=== PATIENT | female | born 1950 | race Caucasian/White ===

== ENCOUNTER 2019-04-04 19:38 | Emergency (ER) | payer MEDICARE ==
--- NOTE | 2019-04-04 21:58 | ED ---
Complex/Multi-Sys Presentation - HPI Summary HPI Summary: Patient complains of lump in right inguinal groin area 1.5 hours. Patient states she was moving stuff all day, denies pain, known trauma, fever, cough, sore throat, CP, SOB, N/V/D, change in urine, change in BM, vaginal symptoms. - History Of Current Complaint Chief Complaint: EDGeneral Time Seen by Provider: 04/04/19 21:00 Hx Obtained From: Patient Onset/Duration: Sudden Onset Timing: Intermittent, Lasting: Severity Currently: None - Allergies/Home Medications Allergies/Adverse Reactions: Allergies Allergy/AdvReac Type Severity Reaction Status Date / Time MS Penicillins [Penicillins] Allergy Severe Anaphylatic Verified 06/15/15 09:19 Shock MS Sertraline [From Zoloft] Allergy Severe HYPERTENSION,COLD Verified 06/15/15 09:19 CLAMMY, INCREASED ANXIETY, MS Trazodone [Trazodone] Allergy Severe DIFFICULTY Verified 06/15/15 09:19 BREATHING, THROAT GETS TIGHT PMH/Surg Hx/FS Hx/Imm Hx Endocrine/Hematology History: Denies: Hx Diabetes, Hx Thyroid Disease Cardiovascular History: Reports: Hx Hypertension Respiratory History: Denies: Hx Asthma, Hx Chronic Obstructive Pulmonary Disease (COPD) GI History: Reports: Hx Hiatal Hernia Denies: Hx Ulcer Musculoskeletal History: Reports: Hx Arthritis - SHE SUSPECT, BILATERAL FEET, BILATERAL THUMBS Sensory History: Reports: Hx Contacts or Glasses - GLASSES Denies: Hx Hearing Aid Opthamlomology History: Reports: Hx Contacts or Glasses - GLASSES Neurological History: Reports: Hx Headaches - BAROMETRIC PRESSURE HEADACHES WITH SOME N/V, Hx Migraine - DURING JOLYNN AND MENOPAUSE Psychiatric History: Reports: Hx Anxiety - HX OF, Hx Depression - Surgical History Surgery Procedure, Year, and Place: Tonsillectomy, C section, Miscarriage, Hx Anesthesia Reactions: No - Immunization History Date of Tetanus Vaccine: Unk Date of Influenza Vaccine: None Infectious Disease History: No Infectious Disease History: Denies: Hx Hepatitis, Hx Human Immunodeficiency Virus (HIV), Traveled Outside the [place] in Last 30 Days - Family History Known Family History: Positive: Non-Contributory - Social History Alcohol Use: Weekly Substance Use Type: Reports: Marijuana Substance Use Comment - Amount & Last Used: OCCASIONAL Smoking Status (MU): Never Smoked Tobacco Review of Systems Constitutional: Negative Eyes: Negative ENT: Negative Cardiovascular: Negative Respiratory: Negative Gastrointestinal: Negative Genitourinary: Negative Musculoskeletal: Negative Skin: Negative Neurological: Negative Psychological: Normal All Other Systems Reviewed And Are Negative: Yes Physical Exam - Summary Physical Exam Summary: No abdominal mass noted in right or left inguinal area. Abdomen soft nontender. Triage Information Reviewed: Yes Vital Signs On Initial Exam: Initial Vitals Temp Pulse Resp BP Pulse Ox 98.5 F 103 20 199/130 98 04/04/19 19:41 04/04/19 19:41 04/04/19 19:41 04/04/19 19:41 04/04/19 19:41 Vital Signs Reviewed: Yes Appearance: Positive: Well-Appearing Skin: Positive: Warm Head/Face: Positive: Normal Head/Face Inspection Eyes: Positive: Normal Neck: Positive: Supple Respiratory/Lung Sounds: Positive: Clear to Auscultation Cardiovascular: Positive: Normal Abdomen Description: Positive: Nontender Musculoskeletal: Positive: Normal Neurological: Positive: Normal Psychiatric: Positive: Normal AVPU Assessment: Alert - Guille Coma Scale Best Eye Response: 4 - Spontaneous Best Motor Response: 6 - Obeys Commands Best Verbal Response: 5 - Oriented Coma Scale Total: 15 Diagnostics - Vital Signs Vital Signs Temp Pulse Resp BP Pulse Ox 04/04/19 20:52 92 196/126 100 04/04/19 19:41 98.5 F 103 20 199/130 98 - Laboratory Lab Statement: Any lab studies that have been ordered have been reviewed, and results considered in the medical decision making process. Complex Multi-Symp Course/Dx Course Of Treatment: Patient complains of lump in right inguinal groin area 1.5 hours. Patient states she was moving stuff all day, denies pain, known trauma, fever, cough, sore throat, CP, SOB, N/V/D, change in urine, change in BM , vaginal symptoms. Vital signs within normal limits. No hernia noted at this time here in ED. Patient is in no pain. Patient concerned for hernia. No hernia noted at this time. Follow-up with surgery. - Diagnoses Provider Diagnoses: Groin lump Discharge - Sign-Out/Discharge Documenting (check all that apply): Patient Departure Patient Received Moderate/Deep Sedation with Procedure: No - Discharge Plan Condition: Stable Disposition: HOME Patient Education Materials: Inguinal Hernia (ED) Referrals: Graciela Ford MD [Primary Care Provider] - Piper Downing MD [Medical Doctor] - Additional Instructions: Follow-up with surgery Dr. Downing for further evaluation of possible hernia. Return to the ED for any new or worsening symptoms including pain, lump that cannot be reduced - Billing Disposition and Condition Condition: STABLE Disposition: Home
[2019-04-04 22:07] VITALS: BP 151/93
== END 2019-04-04 22:06 | disposition home or self-care (01) ==
LOC: ED 19:38
DX: R19.09 Other intra-abdominal and pelvic swelling, mass and lump (principal); Z88.0 Allergy status to penicillin
CPT/HCPCS: 99282

== ENCOUNTER 2024-07-10 15:48 | Inpatient (IN) ==
[2024-07-10 22:38] LABS: ABS Lymphocytes 0.9 10^3/uL (1.0-4.8); ABS Monocytes 1.1 10^3/uL (0.0-0.9); ABS Neutrophils 6.3 10^3/uL (1.5-7.6); ABS Nucleated RBC 0.01 10^3/ul; Eosinophil % 0.2 %; Hematocrit 37.2 % (35-45); Hemoglobin 12.2 g/dL (11.5-14.3); Lymphocyte % 10.8 %; Mean Corpuscular Hemoglobin 26.8 pg (27-33); Mean Corpuscular Hgb Conc 32.9 g/dL (31-36); Mean Corpuscular Volume 81.3 fL (80-97); Mean Platelet Volume 7.8 fL (7.5-11.2); Nucleated Red Blood Cells % 0.1 %/100WBC (0.0-0.8); Platelet Count 357 10^3/uL (150-450); Red Blood Count 4.57 10^6/uL (3.63-4.92); Red Cell Distribution Width 21.9 % (12-17); White Blood Count 8.4 10^3/uL (3.8-11.8)
[2024-07-10 23:06] LABS: Albumin 4.1 g/dL (3.2-5.2); Albumin/Globulin Ratio 1.8 (1-3); C Reactive Protein 124.71 mg/L (<8.01); Calcium 9.6 mg/dL (8.6-10.3); Creatinine, Serum 0.47 mg/dL (0.51-0.95); Globulin 2.3 g/dL (2-4); Potassium 3.8 mmol/L (3.5-5.0); Total Bilirubin 0.8 mg/dL (0.2-1.0); Total Protein 6.4 g/dL (6.4-8.9); eGFR CKD-EPI 99.2 (>60)
[2024-07-10] MEDS: NS 0.9% 1000 ml BAG 1,000 ML IV ONE (23:58)
[2024-07-11 00:02] LABS: Erythrocyte Sed Rate 23 mm/Hr (0-29)
[2024-07-11] MEDS: Morphine 2 MG/ML SYRINGE IV ONE ×2 (01:43→04:59)
[2024-07-11] MEDS: Morphine 4 MG/ML VIAL (1 ml) IV ONE ×2 (10:23→13:37)
[2024-07-11 15:26] LABS: Body Fluid Total Nucleated 3605 /mcL
[2024-07-11 15:38] LABS: Body Fluid Appearance Cloudy; Body Fluid Color Yellow; Body Fluid Source Synovial Fluid
[2024-07-11] MEDS: Gadoteridol (CONTRAST) 279.3 MG/ML 10 ML IV ONE (15:53)
[2024-07-11 16:48] LABS: Body Fluid Mono 24 %; Body Fluid Total Cells Counted 200
[2024-07-11] MEDS ORDERED: Vancomycin 1,000 MG VIAL IVPB SCH (18:00)
[2024-07-11] MEDS ORDERED: Magnesium Hydroxide LIQ 30 ML UDC PO PRN (20:02)
[2024-07-11] MEDS ORDERED: Senna TAB 8.6 mg TAB PO PRN (20:02)
[2024-07-11] MEDS ORDERED: Polyethylene Glycol 3350 17 GM PACKET PO PRN (20:02)
[2024-07-11] MEDS ORDERED: Albuterol HFA INHALER 8 gm MDI INH PRN (20:03)
[2024-07-11] MEDS ORDERED: Lidocaine 1% VIAL 10 MG/ML 30 ML VIAL ONE (20:04)
[2024-07-11] MEDS ORDERED: Metoprolol Tartrate 5 mg VIAL 5 ml VIAL (1 mg/ml) IV PRN (20:05)
[2024-07-11 20:41] LABS: Osmolality Serum 263 mOsm/kg (275-295)
[2024-07-11 21:49] LABS: Body Fluid Total Nucleated 3773 /mcL
[2024-07-11 22:34] LABS: Body Fluid Mono 32 %; Body Fluid Other Cells 22; Body Fluid Total Cells Counted 200
[2024-07-11 22:35] LABS: Body Fluid Appearance Cloudy; Body Fluid Color Yellow; Body Fluid Source Synovial Fluid
[2024-07-11] MEDS: NS 0.9% 1000 ml BAG 1,000 ML IV SCH (23:10)
[2024-07-11] MEDS: Enoxaparin 40 MG/0.4 ML SYR SUBCUT SCH (23:11)
[2024-07-11] MEDS: Lidocaine 1% MPF 5 ML VIAL INJ ONE (23:12)
[2024-07-11] MEDS: Senna TAB 8.6 mg TAB PO SCH (23:12)
[2024-07-12 06:36] LABS: ABS Monocytes 0.6 10^3/uL (0.0-0.9); ABS Neutrophils 4.9 10^3/uL (1.5-7.6); Eosinophil % 0.6 %; Hematocrit 36.2 % (35-45); Hemoglobin 12.3 g/dL (11.5-14.3); Lymphocyte % 15.1 %; Mean Corpuscular Hemoglobin 27.7 pg (27-33); Mean Corpuscular Hgb Conc 33.8 g/dL (31-36); Mean Platelet Volume 8.8 fL (7.5-11.2); Platelet Count 311 10^3/uL (150-450); Red Blood Count 4.42 10^6/uL (3.63-4.92); Red Cell Distribution Width 21.5 % (12-17); White Blood Count 6.6 10^3/uL (3.8-11.8)
[2024-07-12 06:54] LABS: Calcium 8.7 mg/dL (8.6-10.3); Creatinine, Serum 0.45 mg/dL (0.51-0.95); Magnesium 1.5 mg/dL (1.9-2.7); Potassium 3.8 mmol/L (3.5-5.0); eGFR CKD-EPI 100.3 (>60)
[2024-07-12 08:17] LABS: C Reactive Protein 154.95 mg/L (<8.01)
[2024-07-12] MEDS: Polyethylene Glycol 3350 17 GM PACKET PO SCH (09:39)
[2024-07-12] MEDS: Magnesium Sulfate 2 gm BAG 2 GM/50 ML BAG IVPB ONE (09:39)
[2024-07-12 09:45] LABS: Erythrocyte Sed Rate 18 mm/Hr (0-29)
[2024-07-12] MEDS ORDERED: Ondansetron ODT 4 mg TAB 4 MG TAB SL PRN (10:12)
[2024-07-12] MEDS: Magnesium Sulfate IV 1GM/100ML 1 GM/100 ML BAG IV ONE (12:00)
[2024-07-13 08:29] LABS: ABS Basophils 0.1 10^3/uL (0.0-0.1); ABS Eosinophils 0.1 10^3/uL (0.0-0.5); ABS Lymphocytes 0.8 10^3/uL (1.0-4.8); ABS Monocytes 0.6 10^3/uL (0.0-0.9); ABS Neutrophils 3.3 10^3/uL (1.5-7.6); Eosinophil % 1.6 %; Hematocrit 34.7 % (35-45); Hemoglobin 11.6 g/dL (11.5-14.3); Lymphocyte % 16.4 %; Mean Corpuscular Hemoglobin 27.3 pg (27-33); Mean Corpuscular Hgb Conc 33.4 g/dL (31-36); Mean Corpuscular Volume 81.7 fL (80-97); Mean Platelet Volume 8.1 fL (7.5-11.2); Nucleated Red Blood Cells % 0.1 %/100WBC (0.0-0.8); Platelet Count 349 10^3/uL (150-450); Red Blood Count 4.24 10^6/uL (3.63-4.92); Red Cell Distribution Width 21.1 % (12-17); White Blood Count 4.8 10^3/uL (3.8-11.8)
[2024-07-13 08:46] LABS: Creatinine, Serum 0.36 mg/dL (0.51-0.95); Magnesium 1.6 mg/dL (1.9-2.7); Potassium 3.8 mmol/L (3.5-5.0); eGFR CKD-EPI 105.8 (>60)
[2024-07-13] MEDS: Magnesium Sulfate 2 gm BAG 2 GM/50 ML BAG IVPB ONE (11:26)
[2024-07-13] MEDS: Magnesium Sulfate IV 1GM/100ML 1 GM/100 ML BAG IV ONE (12:44)
[2024-07-13 18:56] LABS: C Reactive Protein 70.99 mg/L (<8.01)
[2024-07-13 19:43] LABS: Erythrocyte Sed Rate 3 mm/Hr (0-29)
[2024-07-13] MEDS: hydrALAZINE 20 mg/ml 1 ML Vial IV IV SLOW PU PRN (22:20)
[2024-07-14 07:02] LABS: C Reactive Protein 28.82 mg/L (<8.01); Calcium 8.4 mg/dL (8.6-10.3); Creatinine, Serum 0.4 mg/dL (0.51-0.95); Magnesium 1.8 mg/dL (1.9-2.7); eGFR CKD-EPI 103.2 (>60)
[2024-07-14 08:21] LABS: Hemoglobin 11.4 g/dL (11.5-14.3); Mean Corpuscular Hemoglobin 27.2 pg (27-33); Mean Corpuscular Hgb Conc 33.5 g/dL (31-36); Mean Corpuscular Volume 81.2 fL (80-97); Mean Platelet Volume 8.1 fL (7.5-11.2); Platelet Count 364 10^3/uL (150-450); Red Blood Count 4.19 10^6/uL (3.63-4.92); Red Cell Distribution Width 20.9 % (12-17); White Blood Count 4.5 10^3/uL (3.8-11.8)
[2024-07-14] MEDS: Metoprolol Tartrate 5 mg VIAL 5 ml VIAL (1 mg/ml) IV ONE (18:48)
[2024-07-15 10:23] VITALS: BP 158/113
== END 2024-07-15 15:40 | disposition home health service (06) | DRG 554 ==
LOC: ED 15:48 → EDHOLD 15:48 → MED 07-11 21:49 → SUATTDRO 07-14 10:22
PROVIDERS: ADMIT Internal Medicine; ATTEND Student in an Organized Health Care Education/Training Program